=== PATIENT | male | born 1970 | race American Indian/Alaskan Native ===

== ENCOUNTER 2017-01-15 10:36 | Day surgery (SDC) | payer BC ==
[2017-01-01 09:23] VITALS: BMI 17.9
[2017-01-15] MEDS ORDERED: Rocuronium 10 mg/ml (5 ml) ONE (13:44)
[2017-01-15] MEDS ORDERED: Propofol 10 mg/ml Inj (20 ML) ONE (13:44)
[2017-01-15] MEDS ORDERED: Midazolam 2 MG/2 ML VIAL ONE (13:44)
[2017-01-15] MEDS ORDERED: Lactated Ringer's 1,000 ML IV ONE ×2 (14:00→15:33)
[2017-01-15] MEDS ORDERED: ceFAZolin IV 2 gm in Dextrose 1 GM/50 ML BAG IVPB ONE (14:06)
[2017-01-15] MEDS ORDERED: Neostigmine Methylsulfate 3mg/3ml Syringe IV ONE (16:31)
[2017-01-15] MEDS: HYDROmorphone 0.5 mg/0.5 ml ISec IVP PRN ×3 (18:00→19:05)
[2017-01-15] MEDS ORDERED: Bupivacaine HCl 0.25% PF (10 ml) Inj ONE (18:43)
--- NOTE | 2017-01-15 19:12 | PCM.ANESB1 ---
Interscalene Block - Brachial Plexus Procedure Performed: Interscalene Block of Brachial Plexus Right - Procedure Interscalene Block of Brachial Plexus: This procedure was explained to the patient that it is for post-operative pain management. Consent was obtained after a thorough discussion with the patient regarding the benefits and possible complications of local anesthetic block of the Brachial Plexus at the Interscalene area. The patient was brought to the Operating Room and standard monitors were applied. Time out was held with the circulating nurse to confirm the correct surgery and appropriate block. After applying Oxygen by nasal cannula and administering IV Sedation, the patient's head was gently rotated away from the RIGHT operative shoulder and the anterior scalene groove was carefully palpated. The ultrasound transducer was then applied to the skin in the transverse plane and the brachial plexus was visualized lateral to the carotid artery and in between the anterior and middle scalene muscles. After identification,the anterior lateral portion of the neck was prepped with chloraprep and Lidocaine 1% was injected subcutaneously for topical analgesia. At this point, a # 22 gauge Stimuplex 2 inches insulated needle was inserted into the interscalene groove and directed in a caudal and midline direction. The needle was inserted lateral to the ultrasound transducer in-plane towards the brachial plexus in a [id number] direction. Needle advancement was performed carefully under direct ultrasound visualization. After repeated negative aspiration,__5___cc of_0.25%_bupivicaine were injected and this was followed with _15_cc of _0.25% _bupivicaine. Under ultrasound guidance the local anesthetics were observed surrounding the roots of the brachial plexus. The needle was removed intact and sterile dressing was applied. The patient had stable vital signs, was conscious and in no apparent distress. The patient tolerated the interscalene block of the brachial plexus well with stable vital signs, no paresthesias or other complaints.
[2017-01-15 20:38] VITALS: BP 122/76; PULSE 77; RESP 13; TEMP 100; O2SAT 97
--- NOTE | 2017-01-15 21:34 | PCM.SURG1 ---
Surgeon's Initial Post Op Note - Surgeon's Notes Surgeon: Zayda Wilson MD Building Admin: Denilson Suarez PA-C Type of Anesthesia: General Endo, Block Regional Pre-Operative Diagnosis: Right shoulder #1 rotator cuff full thickness tear. # 2 SLAP tear. #3 biceps long head instability & tendonitis. #4 SA bursitis. # 5 SA impingment. #6 synovitis Operative Findings: Right shoulder #1 rotator cuff partial SS & subscap tears. #2 SLAP tear. #3 biceps long head dislocation & tendonitis. #4 SA bursitis. # 5 SA impingment. #6 synovitis Post-Operative Diagnosis: Right shoulder #1 rotator cuff partial SS & subscap tears. #2 SLAP tear. #3 biceps long head dislocation & tendonitis. #4 SA bursitis. #5 SA impingment. #6 synovitis Operation Performed: Right Shoulder #1 Arthroscopic SLAP repair. #2 Arthroscopic extensive debridement (partial RTC tears/ synovectomy/biceps tenotomy/labral tear). #3 Arthroscopic SA decompression w/ acromioplasty. #4 Open biceps LH subpect tenodesis Specimen/Specimens Removed: specimen= none. complications= none. Implants= Arthrex 2.9mm pushlock biocomposite labral anchors x3, labral tape x3, 6.5 mm biocomposite biceps tenodesis screw Estimated Blood Loss: EBL {In ML}: 5 Blood Products Given: N/A Drains Used: No Drains Post-Op Condition: Good Date of Surgery/Procedure: 01/15/17 Time of Surgery/Procedure: 18:00
--- NOTE | 2017-01-18 08:44 | OP ---
PROCEDURE DATE: 01/15/2017 PREOPERATIVE DIAGNOSES: Right shoulder: 1. Rotator cuff for thickness tear. 2. Superior labrum anterior and posterior tear. 3. Biceps long head instability and tendonitis. 4. Subacromial bursitis. 5. Subacromial impingement. 6. Synovitis. POSTOPERATIVE DIAGNOSES: Right shoulder: 1. Rotator cuff partial supraspinatus and subscapularis tears. 2. Superior labrum anterior and posterior tear. 3. Biceps long head dislocation and tendonitis. 4. Subacromial bursitis. 5. Subacromial impingement. 6. Synovitis. PROCEDURES: Right shoulder: 1. Arthroscopic superior labrum anterior and posterior tear repair. 2. Arthroscopic extensive debridement (debridement of partial rotator cuff tears/synovectomy/biceps tenotomy/debridement of labral tear). 3. Arthroscopic subacromial decompression with acromioplasty. 4. Open biceps long head subpectoral tenodesis. SURGEON: Zayda Wilson MD NECKTIE TURNER: Denilson Suarez PA-C JUSTIFICATION FOR ASSISTANCE: Denilson Suarez, physician teacher assistant, whose skilled surgical services was an absolute necessitate for successful completion of the procedure. He provided skilled surgical assistance with positioning of the patient, positioning of extremities, management of surgical field, retraction of neurovascular structures, passage of suture and placement of anchors for SLAP repair, subacromial decompression and acromioplasty and management of arthroscopic equipment, acquisition and preparation of long head biceps tendon as well as creation of docking site and completion of biceps tenodesis, wound closure, placement of shoulder immobilizer sling. Denilson Suarez was present for the entire case and was an absolute necessitate for successful completion of the procedure. TYPE OF ANESTHESIA: General endotracheal anesthesia with a postop regional nerve block placed by anesthesia staff in PACU. COMPLICATIONS: None. SPECIMEN: None. ESTIMATED BLOOD LOSS: 5 mL. DRAINS: None. DISPOSITION: The patient was extubated and transferred to PACU in stable condition, tolerated the procedure well. IMPLANTS: Arthrex 2.9 mm PushLock BioComposite labral anchor x3, labral tape x3, 6.5 mm BioComposite biceps tenodesis screw for biceps tenodesis. INDICATIONS FOR SURGERY: The patient is a 46-year-old male who is right-hand dominant with no significant past medical history who presented to the office for the first time on 10/19/2016 with right shoulder pain since 12/2015. The patient rated his pain as 8/10 and had difficulty with overhead activity or any cross-arm activity. Pain woke him at night. On initial presentation, had x-rays taken in the office, which were normal with the exception of mild impingement in the acromion. He was referred for an MR arthrogram of his right shoulder, which was done at [facility] on 11/24/2016 and was read as: 1. Pronounced rotator cuff tendinopathy and bursitis with associated 2 cm full thickness anterior distal supraspinatus tendon tear. 2. Identification of 4 mm nondisplaced linear tear involving the posterior superior glenoid labrum. Physical examination in the office revealed that the long head biceps tendon was unstable and was palpated to be jumping in and out of the bicipital groove. Pain was localized to the anterior shoulder at the bicipital groove. He had a positive speed test and there was a palpable click at the anterior shoulder with abduction to 90 and external rotation to 90. He was able to attain full range of motion both actively and passively, but with pain localized to the lateral aspect of the shoulder, the anterior shoulder. He had positive Neer impingement sign. He underwent in the office, cortisone mixture injection localized to the subacromial space as well as the bicipital groove, which provided him with a complete resolution of pain that lasted a few weeks. He was referred to physical therapy and was started on Mobic, antiinflammatory medication as well as compound antiinflammatory cream that did not provide long-term pain improvements. The patient stated that his pain was continuing to worsen after the injections wore off. 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 Finally, after reviewing his MR arthrogram with him and treatment options, he was indicated for right shoulder arthroscopic rotator cuff repair, possible SLAP repair, subacromial decompression and acromioplasty, debridement, open biceps tenodesis and all related indicated procedures. After answering all of his questions, he stated he understood the risks and wished to proceed with surgery. The risk include not limited to infection, neurovascular damage, failure of repair, failure of implant, need for further surgery, advanced spondylosis and degenerative wear, inability to return to preinjury level of activity, stiffness, need for further surgery, development of chronic pain and disability, development of blood clot to clean DVT and PE, anesthesia reactions including , perioperative cardiac and pulmonary issues. After answering all of his questions, he stated he understood the risks and wished to proceed with surgery. He watched surgical animation videos and diagnosis animation videos and stated that he understood his diagnosis as well as the multiple parts of the surgery to be carried out. He was referred to his primary care physician for preadmission testing and preoperative medical evaluation and the procedure was scheduled. PROCEDURE IN DETAIL: The patient was identified in the preoperative holding area and the right shoulder was marked for surgery. Once again as described above; the risks, benefits, alternatives of the procedure was discussed at length with the patient and an informed consent was obtained. After brief discussion with the anesthesia staff, perioperative IV antibiotics in the form of 2 g of Ancef were administered and the patient was taken to the operating room and placed in the well-padded operating room table without bony prominences and superficial neurovascular structures well padded. An initial time-out was done with the surgeon, anesthesia staff and all other staffs, who were in agreement, with the patient, decision made being operated on. General anesthesia was administered without difficulty with complication. An examination under anesthesia was then carried out. EXAMINATION ON GENERAL ANESTHESIA: Right shoulder with full range of motion compared to contralateral shoulder, no evidence of instability with negative sulcus or any subluxation. Skin was intact. No swelling. No warmth. No erythema. Biceps tendon was palpated to be dislocating out of the groove, especially external rotation abduction. The right upper extremity and shoulder were prepped and draped in standard sterile fashion after the patient was brought upright in the beach chair position without bony prominences and superficial neurovascular structures were padded. With the help of anesthesia staff, we determined that he was hemodynamically stable to be in the beach chair position in the upright position as his vital signs were stable and he was auto-regulating. With the help of anesthesia staff, his head and neck alignment and positioning were confirmed to be in neutral. All bony prominences and supervision of vascular structures were well padded. Once we were in our final position in the beach chair position, the right shoulder and upper extremity were prepped and draped in the standard sterile fashion. Normal saline 50 mL were used to insufflate the shoulder joint. Posterior portal was created with stab incision through skin down subcutaneous tissue at the level of capsule. Blunt arthroscopic trocar and cannula were inserted into the glenohumeral joint and the arthroscopic camera was inserted and insufflation of arthroscopic fluid was begun. With the help of spinal needle localization, the anterior portal was created with stab incision through skin down subcutaneous tissue at the level of the rotator interval. With the use of an accessory cannula, the shoulder joint was copiously irrigated for better visualization and removal of debris. With the use of arthroscopic probe, the diagnostic arthroscopy was carried out. 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 The humeral head was also found to have a patchy area of grade II to III chondromalacia at superior lateral aspect. The glenoid labrum was found to be detached with a near complete detachment of the superior anterior aspect of the labrum starting at the 3 o'clock position extending to the 12 o'clock position. This was not a normal variant, this was a complete detachment including a bicipital anchor. The biceps tendon was visualized to be completely dislocated and sitting in front of the humeral head. There was evidence of tenosynovitis as well. The subscapularis tendon was found to have significant partial tearing that was stable. This is probably what resulted in the biceps significant instability. The rotator cuff was evaluated closely and no full thickness tear was seen just partial undersurface tearing at the level of the anterior supraspinatus. With the use of arthroscopic shaver and radiofrequency ablation, an extensive debridement was carried out of the shoulder joint including synovectomy and debridement of the labral tear as well as mild chondroplasty of the glenoid and debridement of the partial rotator cuff tear of the supraspinatus and subscapularis establishing a smooth clean margin. With the use of a scissor, a biceps tenotomy was carried out. With the use of the arthroscopic shaver and radiofrequency ablation, the SLAP tear was debrided to a smooth contour. As this was a complete detachment and the shoulder joint itself appear to be in good overall state with no significant arthritis, decision was made to perform a SLAP repair. With the use of the suture passer from Arthrex, a 9-0 wire was passed at the 3 o'clock position around the labrum that was elevated and freed. A labral tape was then passed around the labrum and the drill was used to create the path for the 2.9 mm PushLock anchor, which was placed successfully with good tension achieved on the labrum and a knot-less labral repair was carried out at 3 o'clok position. This was repeated at the 1 o'clock position and the 12 o'clock position, stabilizing the SLAP repair and securing the labrum back to the glenoid rim. Once these 3 anchors were in good position and the labral repair was confirmed, attention was then transferred to subacromial space as all intraarticular work had been completed. With the use of arthroscopic shaver and radiofrequency ablation, a subacromial decompression and bursectomy was carried out with the significant inflamed tissue and bursitis. With the use of arthroscopic maykel, an acromioplasty was carried out as there was a significant area of impingement from a downsloping of an acromion. Through, accessory portals and multiple views and internal rotation, external rotation positions, the rotator cuff was carefully evaluated with the probe and the blunt arthroscopic trocar under direct visualization and there was no full thickness rotator cuff tear seen and therefore a rotator cuff repair was not carried out. There is only the under surface partial tearing, which was carefully debrided and was intact supraspinatus tendon throughout its course under direct visualization. Once the subacromial work was completed with satisfaction and good hemostasis was achieved and it was determined that the subacromial impingement and bursitis were removed, attention was then turned towards the open portion of the case. The insertion of the pectoralis tendon was identified as a cause of the superior aspect of the axilla and a 3 cm incision was made to skin down subcutaneous tissue and maintained good hemostasis down to level of the deltopectoral fascia. Deltopectoral fascia was sharply incised and blunt dissection was carried out down to the proximal humerus and the bicipital groove was palpated and found to be empty. After careful evaluation and blunt dissection, the long head biceps tendon was localized and brought into the surgical field. Subpectoral position for the biceps tenodesis was selected and the Guidewire was advanced through the near cortex and far cortex. The biceps tendon measured approximately 5 mm and a 6.5 mm cannulated reamer was then advanced through the near cortex and the docking site for the biceps tenodesis was created at the subpectoral position center-center on the humerus proximally. The diseased tendinopathy biceps tissue was removed and tensioning achieved to place the biceps tenodesis with good tension to keep the cosmetic contour of the biceps, muscle belly. With the use of the FiberLoop suture, whipstitch was placed at the proximal aspect of the long head biceps tendon that remained after the excess tendon was debrided. One end of the whipstitch suture was then passed through the biceps tenodesis, BioComposite 6.5 mm screw. The screw and the tendon were docked into the docking site and the screw was advanced and good fixation was achieved. The construct was tested and a stable biceps tenodesis was appreciated. With the use of a free needle, the one limb of the suture was passed through the biceps tendon itself and a backup suture knot was placed. Once this was completed to satisfaction, the wound was copiously irrigated and all excess bony fragments were removed. Good hemostasis was achieved and all wounds were reapproximated with 2-0 Vicryl suture for deep tissue and subcutaneous tissue followed by 3-0 Monocryl suture for skin. Sterile dressings were applied and then the right arm was placed in the shoulder immobilizer sling, which was provided by my office and fitted to the patient at this preoperative visit. The patient was then brought into the supine position and transferred to his stretcher where he was extubated from general anesthesia and tolerated the procedure well. He was transferred to PACU in stable condition. DISPOSITION: The patient will be discharged home once he is recovered from anesthesia. He was given a prescription for Percocet for pain control. He is instructed to keep the right upper extremity in the shoulder immobilizer sling at all times to keep the dressings clean, dry and intact at all times. He is instructed be strict nonweightbearing to the right upper extremity. He will follow up in the office at [facility] within 1 week. Zayda Wilson MD
== END 2017-01-15 21:35 | disposition home or self-care (01) ==
LOC: C.SDS 10:36
PROVIDERS: ATTEND Student in an Organized Health Care Education/Training Program
DX: S46.811D Strain of other muscles, fascia and tendons at shoulder and upper arm level, right arm, subsequent encounter (principal); S43.431D Superior glenoid labrum lesion of right shoulder, subsequent encounter; M75.51 Bursitis of right shoulder; M65.9 Synovitis and tenosynovitis, unspecified; M75.111 Incomplete rotator cuff tear or rupture of right shoulder, not specified as traumatic; Y33.XXXD Other specified events, undetermined intent, subsequent encounter
CPT/HCPCS: 29807; 29826; 29827; 29828; J0690; J1170; J2001; J2250; J2405; J2704; J2710; J3010; J7120